=== PATIENT | male | born 1980 | race Caucasian/White ===

== ENCOUNTER 2017-05-13 02:41 | Emergency (ER) | payer BC ==
[2017-05-13 02:54] VITALS: BP 135/73; PULSE 85; RESP 17; TEMP 97.6
--- NOTE | 2017-05-13 03:23 | ED ---
General Adult HPI - General Chief complaint: Extremity Problem,Nontraumatic Stated complaint: ankle injury Time Seen by Provider: 05/13/17 02:57 Source: patient, RN notes reviewed Mode of arrival: ambulatory Limitations: no limitations - History of Present Illness Initial comments: 28-year-old male presents emergency department with a chief complaint of wanting to be screened for diabetes. At this time we did he has no complaints. He states that he went to the [facility] for an ankle rash they were concerned that he may have diabetes due to some spots on his legs. He states that he otherwise feels fine. He states that he just wants to make sure that he does not have diabetes. Patient denies any recent fever, chills, shortness of breath, chest pain, back pain, abdominal pain, nausea vomiting, numbness or tingling, dysuria or hematuria, constipation or diarrhea, headaches or visual changes, or any other current symptoms. - Related Data Allergies Allergy/AdvReac Type Severity Reaction Status Date / Time pregabalin [From Lyrica] Allergy Rash/Hives Verified 05/13/17 02:54 Penicillins AdvReac Swelling Verified 05/13/17 02:54 Review of Systems ROS Statement: Those systems with pertinent positive or pertinent negative responses have been documented in the HPI. ROS Other: All systems not noted in ROS Statement are negative. Past Medical History Past Medical History: No Reported History Additional Past Medical History / Comment(s): obessive compulsive disorder History of Any Multi-Drug Resistant Organisms: None Reported Past Surgical History: Orthopedic Surgery Additional Past Surgical History / Comment(s): left knee Past Psychological History: No Psychological Hx Reported Smoking Status: Current every day smoker Past Alcohol Use History: Rare Past Drug Use History: None Reported General Exam Limitations: no limitations General appearance: alert, in no apparent distress ENT exam: Present: normal exam, mucous membranes moist Neck exam: Present: normal inspection. Absent: tenderness, meningismus, lymphadenopathy Respiratory exam: Present: normal lung sounds bilaterally. Absent: respiratory distress, wheezes, rales, rhonchi, stridor Cardiovascular Exam: Present: regular rate, normal rhythm, normal heart sounds. Absent: systolic murmur, diastolic murmur, rubs, gallop, clicks Neurological exam: Present: alert, oriented X3 Psychiatric exam: Present: normal affect, normal mood Skin exam: Present: warm, dry, intact, normal color. Absent: rash Course Vital Signs 05/13/17 02:47 Temperature 97.6 F Pulse Rate 85 Respiratory 17 Rate Blood Pressure 135/73 O2 Sat by Pulse 100 Oximetry Medical Decision Making - Medical Decision Making 36-year-old male presents for concern for diabetes. This time an Accu-Chek was taken that showed glucose of 101. At this time we did discuss he needs follow- up with his Dr. return parameters all questions. Patient stated he understood and is given plan. He'll be discharged. Disposition Clinical Impression: Concern about diabetes mellitus without diagnosis Disposition: HOME SELF-CARE Condition: Stable Instructions: Acute Wounds (ED) Additional Instructions: Please use medication as discussed. Please follow up with family doctor if symptoms have not improved over the next two days. Please return to the emergency room if your symptoms increase or worsen or for any other concerns. Referrals: Nenita Martinez III, MD [Primary Care Provider] - 1-2 days Time of Disposition: 03:23
[2017-05-13 03:43] LABS: Glucose,Whole Blood 101 mg/dL (75-99)
== END 2017-05-13 03:46 | disposition home or self-care (01) ==
LOC: EC 02:41
DX: R21 Rash and other nonspecific skin eruption (principal); F42.9 Obsessive-compulsive disorder, unspecified; F17.200 Nicotine dependence, unspecified, uncomplicated; Z88.0 Allergy status to penicillin; Z88.8 Allergy status to other drugs, medicaments and biological substances
CPT/HCPCS: 36415; 99283

== ENCOUNTER 2018-02-25 17:51 | Emergency (ER) | payer BC, OTHER ==
[2018-02-25 18:05] VITALS: BP 121/65; PULSE 94; RESP 20; TEMP 98.1
--- NOTE | 2018-02-25 20:06 | ED ---
Burn/Smoke HPI - General Chief complaint: Burn/Smoke Inhalation Stated complaint: Chemical burn-[facility] Time Seen by Provider: 02/25/18 19:47 Source: patient, RN notes reviewed Mode of arrival: ambulatory Limitations: no limitations - History of Present Illness Initial comments: This is a 37-year-old male who presents to the emergency department with chief complaint of work-related chemical burn. 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 He states that he worked this past Saturday night. He states that on Saturday night he noticed redness and blistering of his right hand and forearm. He states that it is itchy. Denies pain. States that yesterday there were blisters that were weeping. 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 Patient states that the protective gear does not work well anyway as it soaks through into his skin. He states that he has been unable to talk to his outbound supervisor since he is on vacation. Denies recent fevers or chills, chest pain or shortness of breath, abdominal pain, nausea or vomiting. - Related Data Previous Rx's Medication Instructions Recorded Hydrocortisone Cream 1 applic TOPICAL TID #1 tube 02/25/18 [Hydrocortisone 2.5% Cream] Allergies Allergy/AdvReac Type Severity Reaction Status Date / Time pregabalin [From Lyrica] Allergy Rash/Hives Verified 02/25/18 19:56 Penicillins AdvReac Swelling Verified 02/25/18 19:56 Review of Systems ROS Statement: Those systems with pertinent positive or pertinent negative responses have been documented in the HPI. ROS Other: All systems not noted in ROS Statement are negative. Past Medical History Past Medical History: No Reported History Additional Past Medical History / Comment(s): obessive compulsive disorder History of Any Multi-Drug Resistant Organisms: None Reported Past Surgical History: Orthopedic Surgery Additional Past Surgical History / Comment(s): left knee Past Psychological History: No Psychological Hx Reported Smoking Status: Current every day smoker Past Alcohol Use History: Rare Past Drug Use History: None Reported General Exam - General Exam Comments Initial Comments: General: Awake and alert, well-developed; in no apparent distress. HEENT: Head atraumatic, normocephalic. Pupils are equal, round and reactive to light. Extraocular movements intact. Oropharynx moist without erythema or exudate. Neck: Supple. Normal ROM. Cardiovascular: Regular rate and rhythm. No murmurs, rubs or gallops. Chest symmetrical. Radial pulses are 2+ equal and palpable bilaterally. Respiratory: Lungs clear to auscultation bilaterally. No wheezes, rales or rhonchi. Normal respiratory effort with no use of accessory muscles. Musculoskeletal: Normal ROM, no tenderness bilateral upper and lower extremities. Ambulating normally. Skin: Coalesced erythematous maculopapular lesions with a few clear fluid- filled blisters from right dorsal hand up to the elbow. Neurological: Alert and oriented x3. CN II-XII grossly intact. Speech is fluent and answers are appropriate. No focal neuro deficits. Psychiatric: Normal mood and affect. No overt signs of depression or anxiety noted. Limitations: no limitations Course Vital Signs 02/25/18 18:01 Temperature 98.1 F Pulse Rate 94 Respiratory 20 Rate Blood Pressure 121/65 O2 Sat by Pulse 98 Oximetry Medical Decision Making - Medical Decision Making This is a 37-year-old male who presents to the emergency department with chief complaint work-related chemical burn. On physical examination, patient has a coalesced erythematous maculopapular rash extending from his hand up to his elbow. Patient states the rash is pruritic. He is likely suffering from contact dermatitis to the chemical used at work. Recommended keeping arms covered while using the chemical. Patient will be provided with a prescription for topical steroid. His vital signs are stable and he is in no acute distress. He will be discharged home at this time. He is in agreement and voices understanding. All questions were answered. Disposition Clinical Impression: Contact dermatitis Disposition: HOME SELF-CARE Condition: Good Instructions: Contact Dermatitis (ED) Additional Instructions: Please take medications as prescribed. Please keep arms covered while at work. Please follow up with primary care provider within 1-2 days. Return to emergency department if symptoms should worsen or any concerns arise. Prescriptions: Hydrocortisone Cream [Hydrocortisone 2.5% Cream] 1 applic TOPICAL TID #1 tube Is patient prescribed a controlled substance at d/c from ED?: No Referrals: Nenita Martinez III, MD [Primary Care Provider] - 1-2 days Time of Disposition: 20:33
== END 2018-02-25 21:27 | disposition home or self-care (01) ==
LOC: EC 17:51
DX: L25.3 Unspecified contact dermatitis due to other chemical products (principal); F17.200 Nicotine dependence, unspecified, uncomplicated; Z88.8 Allergy status to other drugs, medicaments and biological substances; Z88.0 Allergy status to penicillin
CPT/HCPCS: 99283

== ENCOUNTER → 2018-10-03 | Outpatient (CLI) | payer OTHER ==
--- NOTE | 2018-10-03 11:46 | XR ---
EXAMINATION TYPE: XR ankle complete LT DATE OF EXAM: 10/03/2018 COMPARISON: NONE HISTORY: Pain FINDINGS: Three views of the ankle demonstrate the ankle mortise to be intact and symmetric. The joint spaces are preserved. The osseous structures are intact. Calcaneal spur noted. IMPRESSION: 1. No definite acute fracture or dislocation, if symptoms persist follow-up study in 7 to 10 days wou ld be suggested.
== END | disposition home or self-care (01) ==
LOC: RADXRMAIN 11:21
PROVIDERS: ATTEND Emergency Medicine
DX: S93.402A Sprain of unspecified ligament of left ankle, initial encounter (principal)